=== PATIENT | male | born 2000 | race Hispanic/Latino ===

== ENCOUNTER 2023-04-19 15:06 | Observation (INO) | payer BC ==
[~2023-04-19] VITALS: Ht 177.8 cm; Wt 72.7 kg
[2023-04-19 15:57] LABS: BASOPHILS # (AUTO) 0.03 K/uL (0.00-0.20); BASOPHILS % (AUTO) 0.3 % (0.0-5.0); EOSINOPHILS # (AUTO) 0.07 K/uL (0.00-0.70); EOSINOPHILS % (AUTO) 0.6 % (0.0-8.0); HEMATOCRIT 43.3 % (42-54); IMMATURE GRANULOCYTE ABSOLUTE 0.03 K/uL (0-1); LYMPHOCYTES # (AUTO) 3.2 K/uL (1.0-4.8); LYMPHOCYTES % (AUTO) 29.5 % (21.0-51.0); MEAN CORPUSCULAR HEMOGLOBIN 32.1 pg (27.0-33.0); MEAN CORPUSCULAR HGB CONC 35.6 g/dL (32.0-36.0); MEAN CORPUSCULAR VOLUME 90.2 fL (79-99); MONOCYTES # (AUTO) 0.6 K/uL (0.1-1.0); MONOCYTES % (AUTO) 5.2 % (3.0-13.0); NEUTROPHILS # (AUTO) 6.9 K/uL (1.8-7.7); NEUTROPHILS % (AUTO) 64.1 % (40.0-77.0); PLATELET COUNT (AUTO) 193 K/uL (130-400); RED CELL DISTRIBUTION WIDTH 12.8 % (11.0-15.5); WHITE BLOOD COUNT (AUTO) 10.8 K/uL (4.8-10.8)
[2023-04-19 16:06] LABS: CREATININE 0.9 mg/dL (0.5-1.5); POTASSIUM 4.6 mmol/L (3.5-5.1)
[2023-04-19 16:13] LABS: ALBUMIN 4.3 g/dL (3.5-5.0); AMPHET/METH SCREEN,URINE NEGATIVE (NEGATIVE); BARBITURATE SCREEN, URINE NEGATIVE (NEGATIVE); BENZODIAZEPINES SCREEN,URINE NEGATIVE (NEGATIVE); CANNABINOID SCREEN,URINE NEGATIVE (NEGATIVE); COCAINE SCREEN,URINE NEGATIVE (NEGATIVE); OPIATE SCREEN,URINE NEGATIVE (NEGATIVE); PHENCYCLIDINE SCREEN,URINE NEGATIVE (NEGATIVE); TOTAL PROTEIN, SERUM 8.1 g/dL (6.0-8.3)
[2023-04-19 16:15] LABS: APPEARANCE,URINE CLEAR (CLEAR); BILIRUBIN,URINE NEGATIVE (NEGATIVE); COLOR,URINE LIGHT-YELLOW (YELLOW); GLUCOSE, URINE (UA) NEGATIVE (NEGATIVE); KETONES,URINE NEGATIVE (NEGATIVE); LEUKOCYTE ESTERASE ,URINE NEGATIVE Leu/uL (NEGATIVE); NITRATE,URINE NEGATIVE (NEGATIVE); OCCULT BLOOD,URINE NEGATIVE (NEGATIVE); PROTEIN,URINE NEGATIVE (NEGATIVE); UROBILINOGEN,URINE 0.2 mg/dL (0.2-1.0)
[2023-04-19 16:29] LABS: ADD UA MICROSCOPIC YES
[2023-04-19] MEDS: ASPIRIN 325MG TAB PO ONE (16:39)
[2023-04-19] MEDS: 0.9%NACL 1000ML 1,000 ML IV ONE (16:39)
[2023-04-19 16:43] LABS: BACTERIA,URINE RARE /HPF (None Seen); MUCUS,URINE RARE LPF (None Seen); RBC,URINE 0-1 /HPF (0-1); SQUAMOUS EPITHELIAL CELL,UR RARE /HPF (0-2); WBC,URINE 0-1 /HPF (0-1)
[2023-04-19 16:51] LABS: INR 0.99 (0.85-1.15); PROTHROMBIN TIME 11.5 SEC (9.6-11.6)
[2023-04-19 16:52] LABS: MAGNESIUM 1.9 mg/dL (1.80-2.40); PARTIAL THROMBOPLASTIN TIME 30.8 SEC (26.3-35.5)
[2023-04-19 18:10] LABS: SARS-CoV-2, RNA, NAAT NEGATIVE SARS CoV-2 (NEGATIVE)
[2023-04-19 18:16] LABS: RAPID GROUP A STREP negative (NEGATIVE)
[2023-04-19 18:46] LABS: INFLUENZA TYPE A Negative For Type A (NEGATIVE); INFLUENZA TYPE B Negative For Type B (NEGATIVE)
[2023-04-19] MEDS ORDERED: HYDRALAZINE 20MG/ML VIAL IV PRN (19:00)
[2023-04-19] MEDS ORDERED: ONDANSETRON 4MG INJ IVP PRN (19:00)
[2023-04-19] MEDS ORDERED: LACTULOSE 20 GM/30 ML UDCUP PO PRN (19:00)
[2023-04-19] MEDS ORDERED: MAGNESIUM 2GM PREMIX 50ML 50 ML IV PRN (19:30)
[2023-04-19 19:31] LABS: HEMOGLOBIN A1C 5.3 % (4.0-6.0)
[2023-04-19 19:38] LABS: PHOSPHORUS 3.7 mg/dL (2.5-4.9); THYROID STIMULATING HORMONE 1.56 uIU/mL (0.36-3.74)
[2023-04-19] MEDS: ATORVASTATIN 40 MG TABLET PO SCH (20:56)
[2023-04-19] MEDS: DOCUSATE SODIUM 100 MG CAP PO SCH (20:56)
[2023-04-19] MEDS ORDERED: MORPHINE 2 MG SYG IVP PRN (21:30)
[2023-04-19] MEDS ORDERED: NITROGLYCERIN 0.4 MG SL TAB SL PRN (21:30)
[2023-04-19 22:30] LABS: LACTATE DEHYDROGENASE 126 U/L (81-234)
[2023-04-19 22:35] VITALS: BP 108/64; PULSE 68; RESP 18
[2023-04-20] VITALS (8 sets, daily range): BP systolic 96–118; BP diastolic 51–69; PULSE 44–73; RESP 16–18; O2SAT 96–100
[2023-04-20 06:25] LABS: BASOPHILS # (AUTO) 0.02 K/uL (0.00-0.20); BASOPHILS % (AUTO) 0.4 % (0.0-5.0); EOSINOPHILS # (AUTO) 0.05 K/uL (0.00-0.70); IMMATURE GRANULOCYTE ABSOLUTE 0.01 K/uL (0-1); LYMPHOCYTES # (AUTO) 2.7 K/uL (1.0-4.8); LYMPHOCYTES % (AUTO) 52.5 % (21.0-51.0); MEAN CORPUSCULAR HEMOGLOBIN 31.4 pg (27.0-33.0); MEAN CORPUSCULAR HGB CONC 34.1 g/dL (32.0-36.0); MEAN CORPUSCULAR VOLUME 92.2 fL (79-99); MONOCYTES # (AUTO) 0.4 K/uL (0.1-1.0); MONOCYTES % (AUTO) 8.7 % (3.0-13.0); NEUTROPHILS # (AUTO) 1.9 K/uL (1.8-7.7); NEUTROPHILS % (AUTO) 37.2 % (40.0-77.0); PLATELET COUNT (AUTO) 193 K/uL (130-400); RED BLOOD CELL COUNT(AUTO) 4.77 MIL/uL (4.50-6.20); WHITE BLOOD COUNT (AUTO) 5.1 K/uL (4.8-10.8)
[2023-04-20 06:38] LABS: INR 1.03 (0.85-1.15); PROTHROMBIN TIME 11.9 SEC (9.6-11.6)
[2023-04-20 06:48] LABS: MAGNESIUM 2.1 mg/dL (1.80-2.40); PHOSPHORUS 4.3 mg/dL (2.5-4.9); POTASSIUM 4.6 mmol/L (3.5-5.1)
[2023-04-20 08:05] LABS: ERYTHROCYTE SEDIMENTATION RATE 10 MM/HR (0-15)
[2023-04-20] MEDS: ASPIRIN 81MG CHEW TAB PO SCH (09:04)
[2023-04-20] MEDS: PANTOPRAZOLE 40 MG TAB DR PO SCH (09:04)
[2023-04-20] MEDS: METOPROLOL SUCCINATE 25 MG TAB.SR.24H PO SCH (14:19)
[2023-04-21 03:00] VITALS: BP 103/58; PULSE 50; RESP 16
[2023-04-21 08:00] VITALS: BP 99/60; PULSE 56; RESP 17; O2SAT 96
[2023-04-21 11:50] VITALS: BP 99/55; PULSE 55; RESP 18
[2023-04-21 16:00] VITALS: BP 95/51; PULSE 53; RESP 17
== END 2023-04-21 17:30 | disposition home or self-care (01) ==
LOC: EDH 15:06 → EDHIP 18:53 → 3DH 22:26
PROVIDERS: ADMIT Internal Medicine Pulmonary Disease; ATTEND Internal Medicine Pulmonary Disease
DX: I21.A1 Myocardial infarction type 2 (principal); Z20.822 Contact with and (suspected) exposure to COVID-19; R79.89 Other specified abnormal findings of blood chemistry; E78.00 Pure hypercholesterolemia, unspecified; Z87.891 Personal history of nicotine dependence; Z79.82 Long term (current) use of aspirin; Z79.899 Other long term (current) drug therapy
CPT/HCPCS: 96360; 96361; 99285; 80050; 83036; 82550; 83615; 83735 ×2; 84100 ×2; 84484 ×3; 80061; 83880; 80305; 85378; 85610 ×2; 85730; 87880; 87804 ×2; 86140; 81001; 36415; 87635; 71045; 93005 ×3; 80048; 85025; 85651; 93306; G0378 ×45; J7030; 80053; 84443